=== PATIENT | female | born 1950 | race Caucasian/White ===

== ENCOUNTER 2016-08-03 11:47 | Emergency (ER) | payer MEDICARE ==
[~2016-08-03] VITALS: Ht 162.6 cm; Wt 68.9 kg
[2016-08-03] MEDS ORDERED: ATOR10TA PO (11:50)
[2016-08-03] MEDS ORDERED: MULT-650 PO (11:51)
[2016-08-03] MEDS ORDERED: CALC1TAB75 PO (11:51)
--- NOTE | 2016-08-03 12:27 | PHYS DOC ---
Past Medical History Past Medical History: High Cholesterol, Kidney Stone, Other Additional Past Medical Histor: osteoporosis Past Surgical History: Other Additional Past Surgical Histo: lithotrypsy with kidney stent; left shoulder/ rot cuff; ear Alcohol Use: None Drug Use: None Adult General Chief Complaint Chief Complaint: MECHANICAL FALL HPI HPI Patient is a 66 year old female who presents status post fall. Patient reports she was [place] [employer] when she tripped over a concrete lip, falling forward and hitting her face on the ground. She presents now with pain and abrasion to her nose, as well as left wrist pain. She denies loss of consciousness. No headache, no pain elsewhere. No numbness or weakness. She is unsure of her last tetanus shot. Review of Systems Review of Systems Constitutional: Denies fever or chills HENT: Pain, abrasion to nose Respiratory: Denies cough or shortness of breath Cardiovascular: Denies chest pain GI: Denies abdominal pain, nausea, vomiting, or diarrhea Musculoskeletal: L wrist pain Neurologic: Denies headache, focal weakness or sensory changes Current Medications Current Medications Current Medications Medications (Trade) Dose Ordered Sig/Karly Start Time Stop Time Status Last Admin Dose Admin Acetaminophen (Tylenol) 1,000 mg 1X ONCE 08/03/16 13:00 08/03/16 13:01 DC 08/03/16 12:59 1,000 MG Neomycin/ Polymyxin/ Bacitracin (Triple Antibiotic Ointment) 1 pkt 1X ONCE 08/03/16 13:00 08/03/16 13:01 DC 08/03/16 12:59 1 PKT Tetanus/ Diphtheria Toxoids Adsorbed (Tenivac Syringe) 0.5 ml ONCE ONCE 08/03/16 13:00 08/03/16 13:01 DC 08/03/16 13:00 0.5 ML Allergies Allergies Allergies Coded Allergies Type Severity Reaction Last Updated Verified No Known Drug Allergies 08/03/16 No Physical Exam Physical Exam Constitutional: Well developed, well nourished, no acute distress, non-toxic appearance HENT: Normocephalic, bilateral external ears normal. Nose swollen R>L, abrasion to anterior nose, no septal hematoma noted Eyes: PERRL, EOMI, conjunctiva normal, no discharge Neck: Normal range of motion, no stridor. No midline TTP, no stepoff Cardiovascular: Heart rate normal, regular rhythm, no murmur Lungs & Thorax: Bilateral breath sounds clear to auscultation Abdomen: Bowel sounds normal, soft, non-distended, no TTP Skin: Warm, dry, no erythema, no rash Back: No midline tenderness, no stepoff Extremities: No obvious deformity, no edema. L wrist visually unremarkable compared to R, no significant TTP, 2+ radial pulse, pain along ulnar aspect with ROM Neurologic: Alert and oriented X 3, GCS 15, CN II-XII grossly intact, strength intact and symmetrical throughout, sensation to light touch intact throughout, no dystaxia noted Current Patient Data Vital Signs Vital Signs Date Time Temp Pulse Resp B/P Pulse Ox O2 Delivery O2 Flow Rate FiO2 08/03/16 13:21 153/83 08/03/16 12:51 90 08/03/16 12:21 96 Room Air 08/03/16 11:48 18 EKG EKG [] Radiology/Procedures Radiology/Procedures CT head: IMPRESSION: No acute intracranial abnormality is detected. CT Max/face: IMPRESSION: Nondisplaced right nasal bone fracture X-ray L wrist: IMPRESSION: No acute bony abnormality is detected. Course & Med Decision Making Course & Med Decision Making Pertinent Labs and Imaging studies reviewed. (See chart for details) Patient is 58-year-old female who presents status post mechanical fall. Significant swelling to the nose, will obtain CT head (due to age) and max/face to rule out serious injury. X-ray of left wrist ordered to assess for fracture. Acetaminophen ordered for pain control as patient is to drive her car home. Tetanus booster and Triple Antibiotic ointment ordered for abrasion to nose. Imaging results as above. Discussed results with patient. As nasal fractures is nondisplaced, will be able to send home today. I discussed with patient the need to follow-up with ENT. She has an ENT at [facility] that she would like to see, otherwise I have given her phone number for another option if she is unable to get an appointment with her doctor. Discharged with prescription for pain medication, instructions for close follow-up, strict precautions. Dragon Disclaimer Dragon Disclaimer This electronic medical record was generated, in whole or in part, using a voice recognition dictation system. Departure Departure Impression: Primary Impression: Fall Additional Impressions: Closed fracture nasal bone Left wrist sprain Disposition: HOME, SELF-CARE Condition: STABLE Patient Instructions: Nasal Fracture, Shoulder Sprain Additional Instructions: Thank you for allowing us to provide care today in the Emergency Department. Take the provided medication as directed. Use caution after taking this medication as it can make you drowsy. Schedule a follow up appointment with your ENT. If you are unable to get an appointment, you can follow up with Dr. Saenz (ENT); call the clinic at and let them know you were seen at [facility]. Return promptly to the Emergency Department if you develop any new or concerning symptoms. Scripts Hydrocodone/Apap 5-325 ([place] 5-325 Tablet)1 Each Tablet1 Tab PO PRN Q6HRS PRN PAIN #20 TAB Prov:BRUCE MENJIVAR MD 08/03/16 Problem Qualifiers BRUCE MENJIVAR MD Aug 03, 2016 12:27
--- NOTE | 2016-08-03 12:55 | RAD ---
CT of the head without contrast, 08/03/2016: History: Fall, injuries, facial pain The ventricles are within normal limits in size. There is no shift of the midline structures. There is no evidence of acute intracranial hemorrhage or mass effect. IMPRESSION: No acute intracranial abnormality is detected. CT of the facial bones without contrast, 08/03/2016: Noncontrast scans were obtained with multiplanar reconstructions produced. There is a nondisplaced fracture of the right side of the nasal bones. There is mild overlying soft tissue swelling. The nasal septum is deviated to the right of midline. There is partial opacification of the right nasal cavity. No other fracture is identified. No free fluid is present in the paranasal sinuses. The orbital contents are unremarkable. IMPRESSION: Nondisplaced right nasal bone fracture PQRS Compliance Statement: One or more of the following individualized dose reduction techniques were utilized for this examination: 1. Automated exposure control 2. Adjustment of the mA and/or kV according to patient size 3. Use of iterative reconstruction technique
[2016-08-03] MEDS ORDERED: TETANUS AND DIPHTHERIA TOX/PF 0.5 ML DISP.SYRIN. VAX IM ONE (13:00)
[2016-08-03] MEDS ORDERED: ACETAMINOPHEN 500 MG TABLET PO ONE (13:00)
[2016-08-03] MEDS ORDERED: NEOMY/BACITR/POLYMYXIN OINT PACKET. TP ONE (13:00)
--- NOTE | 2016-08-03 13:01 | RAD ---
Left wrist, 3 views, 08/03/2016: History: Fall, medial pain No acute fracture or dislocation is identified. There are mild degenerative changes at the wrist. IMPRESSION: No acute bony abnormality is detected.
[2016-08-03] MEDS ORDERED: HYDR-971 PO (13:19)
[2016-08-03 13:21] VITALS: BP 153/83
== END 2016-08-03 13:35 | disposition home or self-care (01) ==
LOC: ER 11:47
DX: S02.2XXA Fracture of nasal bones, initial encounter for closed fracture (principal); S63.502A Unspecified sprain of left wrist, initial encounter; E78.00 Pure hypercholesterolemia, unspecified; M81.0 Age-related osteoporosis without current pathological fracture; W01.198A Fall on same level from slipping, tripping and stumbling with subsequent striking against other object, initial encounter; Y93.89 Activity, other specified; Y92.89 Other specified places as the place of occurrence of the external cause; Y99.8 Other external cause status
CPT/HCPCS: 70450; 70486; 73110; 90471; 90714; 99284-25